=== PATIENT | male | born 1940 | race Caucasian/White ===

== ENCOUNTER 2020-04-01 07:44 | Emergency (ER) | payer MEDICARE, OTHER ==
[~2020-04-01] VITALS: Ht 170.2 cm; Wt 81.2 kg
[~2020-04-01 07:44] MED LIST: AMLODIPINE BESYL5 MG PO; ASPIR 8181 MG PO; FINASTERIDE5 MG PO
--- NOTE | 2020-04-01 08:48 | Diagnostic Imaging Report ---
EXAMINATION: Head CT HISTORY: Dizziness for the last 8 hours, chest pain. COMPARISON: None. TECHNIQUE: Helical axial images of the head were obtained. Reformatted coronal and sagittal images from the axial data. Dose modulation, iterative reconstruction, and/or weight based adjustment of the mA/kV was utilized to reduce the radiation dose to as low as reasonably achievable. Image quality: Motion/streaking artifact limits the evaluation of the skull base and posterior cranial fossa. FINDINGS: Parenchyma: 1. Moderate to severe confluent periventricular, rodriguez radiata and centrum semiovale white matter hypodensities, most likely corresponds to nonspecific chronic microvascular ischemic changes. Small chronic lacunar infarct versus prominent perivascular space on the inferior margin of the left lentiform nucleus. 2. No mass or hemorrhage. No CT evidence of acute territorial cortical vascular insult. Extra-axial spaces: No abnormal density. No extra-axial fluid collections Brain volume: Normal for age. Ventricles: No hydrocephalus or displacement. Arteries: No density suggestive of thrombus. Dural sinuses: No abnormal density. Foramen magnum: No mass, Chiari malformation, or basilar invagination. Sella: No obvious mass. Paranasal/mastoid sinuses: Imaged portions unremarkable. Skull/Scalp: No lytic or blastic lesions. No fractures. IMPRESSION: 1. No acute intracranial abnormalities. 2. Moderate chronic white matter microvascular ischemic changes. Signed by: Dr. Katy Fink M.D. on 04/01/2020 8:45 AM
[2020-04-01] MEDS ORDERED: MECLIZINE HCL 12.5 MG TAB ONE (08:59)
[2020-04-01] MEDS ORDERED: SODIUM CHLORIDE 0.9% 1000ML 1,000 ML IV SCH ×2 (09:00→10:00)
[2020-04-01] MEDS ORDERED: MECLIZINE HCL 12.5 MG TAB PO ONE (09:00)
[2020-04-01] MEDS ORDERED: SODIUM CHLORIDE 0.9% 1000ML 1,000 ML ONE (09:00)
[2020-04-01] MEDS ORDERED: MECLIZINE HCL12.5 MG PO (09:35)
[2020-04-01 09:36] VITALS: BP 155/72
--- NOTE | 2020-04-01 09:40 | Emergency Department Note ---
History of Present Illnes History of Present Illness Chief Complaint: Genitourinary History of Present Illness This is a 80 year old male Chief Complaint Comment PT STATED HE IS SWEATING AND FEELING DIZZY, PT STATED HE MOWED THE YARD YESTERDAY EVENING AND STARTED FEELING THIS WAY ABOUT MIDNIGHT, PT DENIES PAIN, OR SOB AT THIS TIME, PTS ONLY COMPLAINTS IS THAT HE FEELS DIZZY. NO DISTRESS NOTED IN TRIAGE. . Historian: Patient Arrival Mode: Car Onset (how long ago): day(s) (1) Location: head Quality: dizzy Radiation: Denies non-radiation, Denies back, Denies neck, Denies extremity, Denies abdomen, Denies periumbilical, Denies flank, Denies proximal, Denies distal, Denies other Severity: moderate Onset quality: gradual Duration (how long): day(s) (1) Timing of current episode: intermittent Progression: waxing and waning Chronicity: new Context: Denies recent illness, Denies recent surgery, Denies recent i mmobilization, Denies recent travel, Denies trauma/injury, Denies new medications, Denies hx of DVT/PE, Denies non-compliance w/ medications, Denies other Relieving factors: rest Exacerbating factors: movement Associated symptoms: Reports denies other symptoms Treatments prior to arrival: none Past Medical/Family History Physician Review I have reviewed the patient's past medical and family history. Any updates have been documented here. Past Medical History Recent Fever: No Clinical Suspicion of Infectio: No New/Unexplained Change in Ment: No Past Medical History: Hypertension, CAD, Chronic Kidney Disease Other Medical History: BPH Past Surgical History: T&A Social History Smoking Cessation: Never Smoker Counseling Performed: No Alcohol Use: Occasional Any Illegal Drug Use: No Physically hurt or threatened: No Other Last Tetanus: 2009 Any Pre-Existing Lines (PICC,: No Review of Systems Review of Systems Constitutional: Reports no symptoms EENTM: Reports no symptoms Cardiovascular: Reports no symptoms Respiratory: Reports no symptoms Gastrointestinal: Reports no symptoms Genitourinary: Reports no symptoms Musculoskeletal: Reports no symptoms Integumentary: Reports no symptoms Neurological: Reports as per HPI Psychological: Reports no symptoms Endocrine: Reports no symptoms Hematological/Lymphatic: Reports no symptoms Physical Exam Related Data Allergies: Coded Allergies: ROSE MARY Inhibitors (Verified Allergy, Intermediate, 04/01/20) lisinopril (Verified Allergy, Unknown, 04/01/20) Triage Vital Signs Vital Signs Date Time Temp Pulse Resp B/P (MAP) Pulse Ox O2 Delivery O2 Flow Rate FiO2 04/01/20 07:50 97.4 63 17 169/81 98 Room Air Vital signs reviewed: Yes Physical Exam CONSTITUTIONAL Constitutional: Present well-developed, Present well-nourished HENT HENT: Present normocephalic, Present atraumatic, Present oropharynx clear/ moist, Present nose normal HENT L/R: Present left ext ear normal, Present right ext ear normal EYES Eyes: Reports PERRL, Reports conjunctivae normal NECK Neck: Present ROM normal PULMONARY Pulmonary: Present effort normal, Present breath sounds normal CARDIOVASCULAR Cardiovascular: Present regular rhythm, Present heart sounds normal, Present capillary refill normal, Present normal rate GASTROINTESTINAL Abdominal: Present soft, Present nontender, Present bowel sounds normal GENITOURINARY Genitourinary: Present exam deferred SKIN Skin: Present warm, Present dry MUSCULOSKELETAL Musculoskeletal: Present ROM normal NEUROLOGICAL Neurological: Present alert, Present oriented x 3, Present no gross motor or sensory deficits PSYCHOLOGICAL Psychological: Present mood/affect normal, Present judgement normal Results Laboratory Lab results reviewed: Yes Imaging Imaging results reviewed: Yes Procedures 12 Lead ECG Interpretation ECG Interpretation : ECG: ECG 1 Water Team Leader: Interpreted by ED physician Date: Apr 01, 2020 Time: 07:50 Rhythm: sinus rhythm Rate: normal BPM: 61 QRS axis: normal ST segments normal: Yes T waves normal: Yes Clinical Impression: normal ECG Assessment & Plan Medical Decision Making MDM cva dizziness vertigo Reassessment Reassessment time: 09:39 Reassessment Resolved , feeling better wants to go home Assessment & Plan Final Impression: (1) Dizziness (2) Vertigo (3) Uncontrolled hypertension Depart Disposition: HOME, SELF-CARE Last Vital Signs Date Time Temp Pulse Resp B/P (MAP) Pulse Ox O2 Delivery O2 Flow Rate FiO2 04/01/20 07:50 97.4 63 17 169/81 98 04/01/20 07:50 Room Air Home Meds Active Scripts Meclizine Hcl (MECLIZINE HCL) 12.5 Mg Tablet, 25 MG PO BID for dizziness, #20 TAB Prov:ADRIAN ROMERO MD 04/01/20 Reported Medications Aspirin (ASPIR 81) 81 Mg Tablet.dr 81 MG PO DAILY 01/01/13 Finasteride (FINASTERIDE) 5 Mg Tablet, 5 MG PO DAILY 01/01/13 Amlodipine Besylate (AMLODIPINE BESYLATE) 5 Mg Tablet, 5 MG PO DAILY 01/01/13 Medications in the ED Meclizine HCl 25 mg ONCE ONCE PO Last administered on 04/01/20at 09:24; Admin Dose 25 MG; Start 04/01/20 at 09:00; Stop 04/01/20 at 09:01; Status DC Meclizine HCl 25 mg STK-MED ONCE .ROUTE ; Start 04/01/20 at 08:59; Stop 04/01/20 at 08:54; Status DC Sodium Chloride 1,000 ml @ ud STK-MED ONCE .ROUTE ; Start 04/01/20 at 09:00; Stop 04/01/20 at 08:54; Status DC Sodium Chloride 1,000 ml @ 0 mls/hr Q0M IV Last administered on 04/01/20at 09:24; Admin Dose 1,000 MLS/HR; Start 04/01/20 at 09:00; Stop 04/01/20 at 09:59; Status UNV Sodium Chloride 1,000 ml @ 0 mls/hr Q0M IV ; Start 04/01/20 at 10:00; Stop 05/01/20 at 09:59; Status UNV ADRIAN ROMERO MD Apr 01, 2020 09:40
== END 2020-04-01 09:45 | disposition home or self-care (01) ==
LOC: FSED 08:17
DX: I10 Essential (primary) hypertension (principal); R42 Dizziness and giddiness; N18.9 Chronic kidney disease, unspecified; I25.10 Atherosclerotic heart disease of native coronary artery without angina pectoris
CPT/HCPCS: 70450; 80053; 82553; 84484; 85025; 93005; 99284; J7030; J8597

== ENCOUNTER 2022-06-30 18:09 | Observation (INO) | payer MEDICARE ==
[~2022-06-30] VITALS: Ht 170.2 cm; Wt 83.9 kg
[~2022-06-30 18:09] MED LIST changes: +MECLIZINE HCL12.5 MG PO
[2022-06-30 18:45] LABS: BASOPHILS % 0.4 % (0.0-1.0); EOSINOPHILS # (AUTO) 0.2 (0.0-0.4); EOSINOPHILS % 1.4 % (0.0-6.0); HEMATOCRIT 39.5 % (38.2-49.6); HEMOGLOBIN 13.7 g/dL (14.0-18.0); LYMPHOCYTES # (AUTO) 1.6 (1.0-3.2); LYMPHOCYTES % 14.7 % (18.0-39.1); MEAN CORPUSCULAR HEMOGLOBIN 31.9 pg (28-32); MEAN CORPUSCULAR HGB CONC 34.7 g/dL (31-35); MEAN CORPUSCULAR VOLUME 92.1 fL (81-99); MONOCYTES % 9.3 % (4.4-11.3); NEUTROPHILS # (AUTO) 7.9 (2.1-6.9); NEUTROPHILS % 73.6 % (38.7-80.0); PLATELET COUNT 305 x10e3/uL (140-360); RED BLOOD COUNT 4.29 x10e6/uL (4.3-5.7); RED CELL DISTRIBUTION WIDTH 12.2 % (11.7-14.4)
[2022-06-30 19:19] LABS: ALBUMIN 3.6 g/dL (3.5-5.0); ALBUMIN/GLOBULIN RATIO 0.9 (0.8-2.0); ANION GAP 20.6 mmol/L (8-16); CALCIUM 9.8 mg/dL (8.4-10.2); CREATININE, SERUM 1.33 mg/dL (0.72-1.25); POTASSIUM 4.6 mmol/L (3.5-5.1)
[2022-06-30 19:36] LABS: CLARITY,URINE CLEAR (CLEAR); COLOR,URINE YELLOW (YELLOW); LEUKOCYTE ESTERASE ,URINE NEGATIVE (NEGATIVE); NITRITE,URINE NEGATIVE (NEGATIVE); PROTEIN,URINE DIPSTICK NEGATIVE (NEGATIVE)
[2022-06-30 19:37] LABS: KETONES,URINE 1+ (NEGATIVE); URINE UROBILINOGEN 1 mg/dL (0.2 - 1)
[2022-06-30 19:42] LABS: BACTERIA,URINE RARE /HPF; EPITHELIAL CELLS,URINE RARE /LPF; RBC,URINE 0-5 /HPF (0-5); WBC,URINE (MAN) 0-5 /HPF (0-5)
[2022-06-30] MEDS ORDERED: IOPAMIDOL 370 MG/ML 100 ML INFUS..BTL INJ ONE (20:09)
[2022-06-30] MEDS ORDERED: SODIUM CHLORIDE 0.9% 1000ML 1,000 ML IV STA (21:17)
[2022-06-30] MEDS ORDERED: ONDANSETRON HCL INJ 2MG/ML 2ML 2 MG/ML VIAL IV STA (21:18)
[2022-06-30] MEDS ORDERED: Morphine 4mg INJECTION 4 MG/ML INJ IV PRN (22:45)
[2022-06-30] MEDS ORDERED: ONDANSETRON HCL INJ 2MG/ML 2ML 2 MG/ML VIAL IV PRN (22:45)
[2022-07-01] MEDS: SODIUM CHLORIDE 0.9% 1000ML 1,000 ML IV SCH ×3 (02:30→09:12)
[2022-07-01 02:40] VITALS: BP 129/72
[2022-07-01 07:01] LABS: BASOPHILS # (AUTO) 0.1 (0.0-0.1); BASOPHILS % 0.5 % (0.0-1.0); EOSINOPHILS # (AUTO) 0.2 (0.0-0.4); EOSINOPHILS % 1.8 % (0.0-6.0); HEMATOCRIT 41.4 % (38.2-49.6); HEMOGLOBIN 13.4 g/dL (14.0-18.0); LYMPHOCYTES # (AUTO) 2.1 (1.0-3.2); LYMPHOCYTES % 16.2 % (18.0-39.1); MEAN CORPUSCULAR HEMOGLOBIN 31.8 pg (28-32); MEAN CORPUSCULAR HGB CONC 32.4 g/dL (31-35); MEAN CORPUSCULAR VOLUME 98.3 fL (81-99); MONOCYTES # (AUTO) 1.3 (0.2-0.8); MONOCYTES % 10.1 % (4.4-11.3); NEUTROPHILS # (AUTO) 9.3 (2.1-6.9); PLATELET COUNT 321 x10e3/uL (140-360); RED BLOOD COUNT 4.21 x10e6/uL (4.3-5.7); RED CELL DISTRIBUTION WIDTH 12.3 % (11.7-14.4)
[2022-07-01 07:54] LABS: ALBUMIN 3.4 g/dL (3.5-5.0); ALBUMIN/GLOBULIN RATIO 0.8 (0.8-2.0); ANION GAP 16.4 mmol/L (8-16); CALCIUM 8.7 mg/dL (8.4-10.2); CREATININE, SERUM 1.42 mg/dL (0.72-1.25); POTASSIUM 4.4 mmol/L (3.5-5.1)
[2022-07-01 08:02] VITALS: BP 135/88
[2022-07-01 08:55] VITALS: BP 135/88
[2022-07-01] MEDS ORDERED: ACETAMINOPHEN 325 MG TAB PO PRN (11:15)
[2022-07-01] MEDS ORDERED: LACTATED RINGER'S 1,000 ML INJ SCH (11:30)
[2022-07-01 11:53] VITALS: BP 135/98
[2022-07-01] MEDS ORDERED: FINASTERIDE 5 MG TAB PO SCH (13:00)
[2022-07-01] MEDS ORDERED: AMLODIPINE BESYLATE 5 MG TAB PO SCH (13:00)
[2022-07-02] MEDS ORDERED: AMLODIPINE BESYLATE 5 MG TAB PO SCH (09:00)
[2022-07-02] MEDS ORDERED: ASPIRIN 81 MG CHEW TAB PO SCH (09:00)
[2022-07-02] MEDS ORDERED: FINASTERIDE 5 MG TAB PO SCH (09:00)
== END 2022-07-01 14:15 | disposition home or self-care (01) ==
LOC: ER 18:15 → ERHOLD 22:42 → MED/SURG3 07-01 02:00
PROVIDERS: ADMIT Internal Medicine; ATTEND Internal Medicine
DX: R10.11 Right upper quadrant pain (principal); K85.90 Acute pancreatitis without necrosis or infection, unspecified; I12.9 Hypertensive chronic kidney disease with stage 1 through stage 4 chronic kidney disease, or unspecified chronic kidney disease; N18.30 Chronic kidney disease, stage 3 unspecified; N40.0 Benign prostatic hyperplasia without lower urinary tract symptoms; I25.10 Atherosclerotic heart disease of native coronary artery without angina pectoris; Z95.5 Presence of coronary angioplasty implant and graft; Z85.828 Personal history of other malignant neoplasm of skin; Z82.49 Family history of ischemic heart disease and other diseases of the circulatory system; K59.00 Constipation, unspecified; E78.5 Hyperlipidemia, unspecified; F10.90 Alcohol use, unspecified, uncomplicated; Z20.822 Contact with and (suspected) exposure to COVID-19
CPT/HCPCS: 36415 ×2; 74018; 74177; 80053 ×2; 81001; 83690; 85025 ×2; 99284; G0378 ×2; J2405; J7030 ×2; Q9967; U0002